=== PATIENT | male | born 1980 | race Caucasian/White ===

== ENCOUNTER 2016-08-06 18:04 | Emergency (ER) | payer OTHER ==
[2016-08-06 18:14] VITALS: BP 157/91
--- NOTE | 2016-08-06 18:21 | UC ---
Skin Complaint HPI - HPI Summary HPI Summary: The patient comes in today for: 1. Sore in the left groin: Onset: 2 days ago. Palliative/provocative: Pressure makes it worse. Rest makes it better. Quality: Sore. Region/radiation: Upper left inner thigh. Severity: 5/10 Time: Constant. Associated symptoms: Fevers: None Previous problem: No mass before. Previous treatment: He states that pinched the area 2 days ago. He states that "white stuff" came out. * - History of Current Complaint Chief Complaint: UC Time Seen by Provider: 08/06/16 18:16 Stated Complaint: INGROWN HAIR Hx Obtained From: Patient, Family/Jeeper Operator - Allergy/Home Medications Allergies/Adverse Reactions: Allergies Allergy/AdvReac Type Severity Reaction Status Date / Time No Known Allergies Allergy Verified 08/06/16 18:09 Home Medications: Home Medications Pravastatin (NF) [Pravachol (NF)] 10 mg PO 1700 08/06/16 [History Confirmed 07/22] Review of Systems Constitutional: Negative Skin: Rash Eyes: Negative ENT: Negative Respiratory: Negative Cardiovascular: Negative Gastrointestinal: Negative Genitourinary: Negative All Other Systems Reviewed And Are Negative: Yes PMH/Surg Hx/FS Hx/Imm Hx Previously Healthy: No Endocrine History Of: Reports: Dyslipidemia Denies: Diabetes, Thyroid Disease, Hyperthyroidism, Hypothyroidism Cardiovascular History Of: Denies: Cardiac Disorders, Hypertension, Pacemaker/ICD, Myocardial Infarction , Congestive Heart Failure, Atrial Fibrillation, Deep Vein Thrombosis, Bleeding Disorders Respiratory History Of: Denies: COPD, Asthma, Bronchitis, Pneumonia, Pulmonary Embolism GI/ History Of: Denies: Gastroesophageal Reflux, Ulcer, Gastrointestinal Bleed, Gall Bladder Disease, Kidney Stones, Diverticulitis, Renal Disease, Urosepsis Neurological History Of: Denies: TIA, CVA, Dementia, Seizures, Migraine Psychological History Of: Denies: Anxiety, Depression, Bipolar Disorder, Schizophrenia, Post Traumatic Stress Disorder Cancer History Of: Denies: Lung Cancer, Colorectal Cancer, Breast Cancer, Prostate Cancer, Cervical Cancer Other History Of: Negative For: HIV, Hepatitis B, Hepatitis C, Anticoagulant Therapy - Surgical History Surgical History: Yes Surgery Procedure, Year, and Place: Inguinal hernia repair; bilateral - Family History Known Family History: Negative: Cardiac Disease, Hypertension - Social History Occupation: Employed Full-time Alcohol Use: Daily Alcohol Amount: 1 beer or wine a day Substance Use Type: None Smoking Status (MU): Never Smoked Tobacco - Immunization History Most Recent Influenza Vaccination: none Most Recent Tetanus Shot: unknown Physical Exam Triage Information Reviewed: Yes Appearance: Well-Appearing, No Pain Distress, Well-Nourished Vital Signs: Initial Vital Signs Temp 97.8 F 08/06/16 18:10 Pulse 90 08/06/16 18:10 Resp 16 08/06/16 18:10 BP 157/91 08/06/16 18:10 Pulse Ox 98 08/06/16 18:10 Eyes: Positive: Conjunctiva Clear. Negative: Discharge ENT: Positive: Hearing grossly normal. Negative: Pharyngeal erythema, Nasal congestion, Nasal drainage, TM bulging, TM dull, TM red, Tonsillar swelling, Tonsillar exudate Dental: Negative: Gross Decay/Caries @ Neck: Positive: Supple, Nontender, No Lymphadenopathy. Negative: Nuchal Rigidity Respiratory: Positive: Chest non-tender, No respiratory distress, No accessory muscle use. Negative: Rhonchi, Wheezing Cardiovascular: Positive: RRR, No Murmur Abdomen Description: Positive: Nontender, No Organomegaly, Soft. Negative: Distended, Guarding Musculoskeletal: Positive: Strength Intact, ROM Intact, No Edema Neurological: Positive: Alert, Muscle Tone Normal Psychological: Positive: Normal Response To Family, Age Appropriate Behavior, Consolable Skin: Positive: Other - The patient had a mass of his upper left thigh. There was a center that had fluctuance about 1 cm in size and an oval of erythema which was about three inches arcing toward the inquinal nodes. Course/Dx - Course Course Of Treatment: The patient had less than 1 cc of 2% lidocaine with epinephrine instilled in the center of the red, fluctuant area. After anesthesia was obtained a small "X" cut was made. A small mosquito hemostat was inserted through the cut into the cavity and about 1-2 cc of bloody purulent drainage came out. A drain of about 1.5 inches was inserted into the cavity. Antibiotic ointment was applied to the surface of the cut and covered the drain outside the cavity. Telfa pad was put on the wound then a layer of gauze. Coban was used to hold the dressing in place. - Differential Diagnoses - Skin Complaint Differential Diagnoses: Abscess, Cellulitis - Diagnoses Provider Diagnoses: Abscess of the upper, inner left leg, incised and drained. Cellulitis of the same area. Discharge - Discharge Plan Condition: Stable Disposition: HOME Patient Education Materials: Cellulitis (ED), Abscess Incision and Drainage (ED ), Abscess (ED), Abscess Follow-up (ED) Referrals: Lalito Hui MD [Primary Care Provider] - 1 Week (Please see your primary care provider or us after several days to a week to see how well you are doing. If you get worse, please be seen sooner.) Additional Instructions: Please gently remove the dressing to inspect the drain and abscess site daily. Check for drainage (blood and pus) and size of redness of the area. Check for any increased tenderness of the left groin lymph nodes. Check for any drainage and tenderness. With the abscess being cut into and drained. The drainage, redness, and tenderness should be improving daily. Eventually, the drain should come out on its own. If you continue to do well with reducing redness, tenderness and drainage, you should not need to have any follow-up evaluation. If you don't continue to improve, please be seen again.
[2016-08-06] MEDS ORDERED: Lidocaine 2% W/EPI 1:100,000* 20 ML MDV ONE (18:34)
== END 2016-08-06 19:23 | disposition home or self-care (01) ==
LOC: UCEAST 18:04
DX: L02.416 Cutaneous abscess of left lower limb (principal); L03.116 Cellulitis of left lower limb
CPT/HCPCS: 10060; 87070; 87076; 87077; 87205; 87640; 87641; 99212; G0463

== ENCOUNTER 2016-08-26 13:00 | Emergency (ER) | payer OTHER ==
[2016-08-26 14:13] VITALS: BP 159/96
--- NOTE | 2016-08-26 14:33 | UC ---
Skin Complaint HPI - HPI Summary HPI Summary: follow-up abscess. He was here on Aug 06 for an abscess on left upper thigh. I&D performed with packing placed. Because it was such a small piece of packing, it was anticipated that it would fall out on its own in a day or two. However, it never fell out and has now been in place 20 days. Pt notes redness and irritation around wound with a foul smell - History of Current Complaint Chief Complaint: UCWounds Time Seen by Provider: 08/26/16 14:15 Stated Complaint: WOUND RECHECK Hx Obtained From: Patient Onset/Duration: Gradual Onset, Lasting Weeks - 2 Timing: Constant Onset Severity: Moderate Current Severity: Mild Location: Other - left upper inner thigh Character: Redness, Painful Aggravating: Touch Alleviating: Nothing Associated Signs & Symptoms: Positive: Drainage Related History: Trauma - I&D performed 06 Aug 2016 - Allergy/Home Medications Allergies/Adverse Reactions: Allergies Allergy/AdvReac Type Severity Reaction Status Date / Time No Known Allergies Allergy Verified 08/06/16 18:09 Review of Systems Constitutional: Negative Skin: Other - left upper thigh abscess Eyes: Negative ENT: Negative Respiratory: Negative Cardiovascular: Negative Gastrointestinal: Negative Genitourinary: Negative Motor: Negative Neurovascular: Negative Musculoskeletal: Negative Neurological: Negative Psychological: Negative All Other Systems Reviewed And Are Negative: Yes PMH/Surg Hx/FS Hx/Imm Hx Endocrine History Of: Reports: Dyslipidemia Denies: Diabetes, Thyroid Disease, Hyperthyroidism, Hypothyroidism Cardiovascular History Of: Denies: Cardiac Disorders, Hypertension, Pacemaker/ICD, Myocardial Infarction , Congestive Heart Failure, Atrial Fibrillation, Deep Vein Thrombosis, Bleeding Disorders Respiratory History Of: Denies: COPD, Asthma, Bronchitis, Pneumonia, Pulmonary Embolism GI/ History Of: Denies: Gastroesophageal Reflux, Ulcer, Gastrointestinal Bleed, Gall Bladder Disease, Kidney Stones, Diverticulitis, Renal Disease, Urosepsis Neurological History Of: Denies: TIA, CVA, Dementia, Seizures, Migraine Psychological History Of: Denies: Anxiety, Depression, Bipolar Disorder, Schizophrenia, Post Traumatic Stress Disorder Cancer History Of: Denies: Lung Cancer, Colorectal Cancer, Breast Cancer, Prostate Cancer, Cervical Cancer Other History Of: Negative For: HIV, Hepatitis B, Hepatitis C, Anticoagulant Therapy - Surgical History Surgical History: Yes Surgery Procedure, Year, and Place: Inguinal hernia repair; bilateral - Family History Known Family History: Negative: Cardiac Disease, Hypertension - Social History Occupation: Employed Full-time Lives: With Family Alcohol Use: Daily Alcohol Amount: 1 beer or wine a day Substance Use Type: None Smoking Status (MU): Never Smoked Tobacco - Immunization History Most Recent Influenza Vaccination: none Most Recent Tetanus Shot: unknown Physical Exam Triage Information Reviewed: Yes Appearance: Well-Appearing, No Pain Distress, Well-Nourished Vital Signs: Initial Vital Signs Temp 98.4 F 08/26/16 14:10 Pulse 72 08/26/16 14:10 Resp 18 08/26/16 14:10 BP 159/96 08/26/16 14:10 Pulse Ox 98 08/26/16 14:10 Vital Signs Reviewed: Yes Eye Exam: Normal Neck exam: Normal Respiratory Exam: Normal Cardiovascular Exam: Normal Musculoskeletal Exam: Normal Neurological Exam: Normal Psychological Exam: Normal Skin Exam: Other - left upper inner thigh with redness and a protruding wick. Removed. It is only about 1" long. Wound started oozing blood and serous fluid once packing was removed. Minimal tenderness Course/Dx - Differential Diagnoses - Skin Complaint Differential Diagnoses: Abscess, Cellulitis - Diagnoses Provider Diagnoses: resolving abscess Discharge - Discharge Plan Condition: Stable Disposition: HOME Prescriptions: Sulfamethox/Trimethoprim DS* [Bactrim DS 800/160 TAB*] 1 tab PO BID #8 tab Patient Education Materials: Abscess Follow-up (ED) Referrals: Edenilson Ennis MD [Primary Care Provider] - Additional Instructions: Clean the area once a day with soap and water. Cover it with a bandage or pad until it stops draining, which will probably happen in 2 or 3 days. Take the antibiotic just for the next 4 days. I expect that now that the packing is out of the wound it will heal rapidly.
== END 2016-08-26 14:34 | disposition home or self-care (01) ==
LOC: UCEAST 13:00
DX: L02.416 Cutaneous abscess of left lower limb (principal)
CPT/HCPCS: 99212; G0463

== ENCOUNTER 2017-02-21 07:52 | Emergency (ER) | payer OTHER ==
[2017-02-21 08:03] VITALS: BP 148/84
--- NOTE | 2017-02-21 08:22 | UC ---
Skin Complaint HPI - History of Current Complaint Chief Complaint: UCSkin Time Seen by Provider: 02/21/17 08:06 Stated Complaint: RASH Hx Obtained From: Patient - was exposed to poison brittani yesterday and today broke out in intensly itchy rash on face, arms, legs Onset/Duration: Sudden Onset - today Onset Severity: Moderate Current Severity: Moderate Location: Diffuse Character: Pruritus, Redness, Raised Aggravating: Touch Alleviating: Nothing - tried calamine Associated Signs & Symptoms: Positive: Negative Related History: Possible Reaction to: Environmental Exposure - poison brittani - Allergy/Home Medications Allergies/Adverse Reactions: Allergies Allergy/AdvReac Type Severity Reaction Status Date / Time No Known Allergies Allergy Verified 02/21/17 08:02 Review of Systems Constitutional: Negative Skin: Rash Eyes: Negative Respiratory: Negative Cardiovascular: Negative Neurological: Negative Psychological: Negative All Other Systems Reviewed And Are Negative: Yes PMH/Surg Hx/FS Hx/Imm Hx Previously Healthy: Yes Other History Of: Negative For: HIV, Hepatitis B, Hepatitis C, Anticoagulant Therapy - Surgical History Surgical History: Yes Surgery Procedure, Year, and Place: Inguinal hernia repair; bilateral - Family History Known Family History: Negative: Cardiac Disease, Hypertension - Social History Occupation: Employed Full-time Lives: With Family Alcohol Use: Daily Alcohol Amount: 1 beer or wine a day Substance Use Type: None Smoking Status (MU): Never Smoked Tobacco - Immunization History Most Recent Influenza Vaccination: none Most Recent Tetanus Shot: unknown Physical Exam Triage Information Reviewed: Yes Appearance: Well-Appearing, No Pain Distress, Well-Nourished Vital Signs: Initial Vital Signs Temp 97.6 F 02/21/17 07:59 Pulse 85 02/21/17 07:59 Resp 20 02/21/17 07:59 BP 148/84 02/21/17 07:59 Pulse Ox 100 02/21/17 07:59 Vital Signs Reviewed: Yes Eye Exam: Normal Eyes: Positive: Conjunctiva Clear. Negative: Discharge Respiratory Exam: Normal Cardiovascular Exam: Normal Neurological Exam: Normal Psychological Exam: Normal Skin: Positive: rashes - scattered linear, raised , prurutitic, erythemic lesions on UE, LE, trunk and R side face Course/Dx - Differential Diagnoses - Skin Complaint Differential Diagnoses: Contact Dermatitis, Local Allergic Reaction, Poison Brittani , Scabies - Diagnoses Provider Diagnoses: poison brittani Discharge - Discharge Plan Condition: Stable Disposition: HOME Prescriptions: Methylprednisolone [Medrol Dosepak 4 MG*] 0 mg PO .SEE ABBY INSTRUCTION #1 abby Patient Education Materials: Poison Brittani (ED) Referrals: Edenilson Ennis MD [Primary Care Provider] - 3 Days (if no improvement) Additional Instructions: make to wash the clothes and shoes that were exposed to the poison brittani use prescribed medrol dose abby (prednisone) as directed Over the counter: use Benadryl 50mg every 4-6 hours today and tomorrow apply hydrocortisone cream to itchy rash as directed
== END 2017-02-21 08:34 | disposition home or self-care (01) ==
LOC: UCEAST 07:52
DX: L23.7 Allergic contact dermatitis due to plants, except food (principal)
CPT/HCPCS: 99212; G0463

== ENCOUNTER 2017-02-26 08:40 | Emergency (ER) | payer OTHER ==
[2017-02-26 08:48] VITALS: BP 141/90
[2017-02-26] MEDS ORDERED: methylPREDNISolone 125 MG* 2 ML VIAL IM ONE (09:05)
[2017-02-26] MEDS ORDERED: methylPREDNISolone 125 MG* 2 ML VIAL ONE (09:07)
--- NOTE | 2017-02-26 15:22 | UC ---
Cuca Miles Alfonso, scribed for Anisha Shannon MD on 02/26/17 at 0857 . Skin Complaint HPI - HPI Summary HPI Summary: This patient is a 36 year old M presenting to [facility] with a chief complaint of a rash since 7 days ago. The CC is described as pruritic. The rash is at his bilateral arms, legs, and torso. Symptoms aggravated by nothing. Symptoms alleviated by Benadryl and calamine lotion. Pt was seen at [facility] on 02/21, dx poison brittani, rx'ed medrol dose pack, with his last dose this am. Patients medications reviewed this visit. Patients allergies reviewed this visit. - History of Current Complaint Chief Complaint: UCRash Time Seen by Provider: 02/26/17 08:52 Stated Complaint: RASH Hx Obtained From: Patient Onset/Duration: Sudden Onset, Lasting Weeks - 1, Still Present Timing: Constant Onset Severity: Moderate Current Severity: Moderate Location: Other - bilateral arms, legs, and torso Character: Pruritus Aggravating: Nothing Alleviating: Treatment CASH ANALYST: - Benadryl and calamine lotion Related History: Possible Reaction to: Environmental Exposure - Posion brittani. - Allergy/Home Medications Allergies/Adverse Reactions: Allergies Allergy/AdvReac Type Severity Reaction Status Date / Time No Known Allergies Allergy Verified 02/26/17 08:45 Review of Systems Constitutional: Negative Skin: Rash All Other Systems Reviewed And Are Negative: Yes PMH/Surg Hx/FS Hx/Imm Hx Other GI/ History: Inguinal hernia Other History Of: Negative For: HIV, Hepatitis B, Hepatitis C, Anticoagulant Therapy - Surgical History Surgical History: Yes Surgery Procedure, Year, and Place: Inguinal hernia repair; bilateral - Family History Known Family History: Negative: Cardiac Disease, Hypertension - Social History Alcohol Use: Daily Alcohol Amount: 1 beer or wine a day Substance Use Type: None Smoking Status (MU): Never Smoked Tobacco - Immunization History Most Recent Influenza Vaccination: none Most Recent Tetanus Shot: unknown Physical Exam Triage Information Reviewed: Yes Appearance: Well-Nourished Vital Signs: Initial Vital Signs Temp 97.6 F 02/26/17 08:45 Pulse 72 02/26/17 08:45 Resp 16 02/26/17 08:45 BP 141/90 02/26/17 08:45 Pulse Ox 100 02/26/17 08:45 Vital Signs Reviewed: Yes Eye Exam: Normal ENT Exam: Normal Neck exam: Normal Neck: Positive: No Lymphadenopathy Respiratory Exam: Normal Respiratory: Positive: Other: - no dyspnea, no tachypnea, normal respiratory rate Cardiovascular: Positive: RRR, Other: - good general skin color, good capillary refill Abdomen Description: Positive: Nontender, No Organomegaly, Soft Bowel Sounds: Positive: Present Musculoskeletal Exam: Normal Musculoskeletal: Positive: Strength Intact Neurological Exam: Normal Neurological: Positive: Other: - nonfocal, grossly intact Psychological: Positive: Age Appropriate Behavior Skin: Positive: rashes Course/Dx - Course Course Of Treatment: This patient is a 36 year old M presenting to [facility] with a chief complaint of a rash since 7 days ago. The CC is described as pruritic. The rash is at his bilateral arms, legs, and torso. Symptoms aggravated by nothing. Symptoms alleviated by Benadryl and calamine lotion. Pt was seen at [facility] on 02/21, dx poison brittani, rx'ed medrol dose pack, with his last dose this am. Patients medications reviewed this visit. Patients allergies reviewed this visit. Patient instructed to follow up with primary care provider for high blood pressure noted today at 141/90. In the [facility] course the patient was given Solu-Medrol IM 125mg. Patient will be discharged with prescription for Benadryl , Pepcid, and Prednisone taper (reviewed w pt), and follow up from PCP. The patient is agreeable with this plan. - Diagnoses Provider Diagnoses: Poison brittani / contact dermatitis. Discharge - Discharge Plan Condition: Stable Disposition: HOME Prescriptions: Diphenhydramine HCl [Benadryl Allergy 25 MG CAP] 25 mg PO Q6H PRN #20 cap PRN Reason: Itching Famotidine TAB* [Pepcid 20 MG TAB*] 20 mg PO DAILY PRN #10 tab PRN Reason: Itching predniSONE TAB* [Deltasone TAB*] 10 mg PO DAILY #20 tab Patient Education Materials: Poison Brittani (ED), Dermatitis (ED) Referrals: Edenilson Ennis MD [Primary Care Provider] - 1 Week Additional Instructions: Follow up with your primary care provider 1-2 weeks for high blood pressure noted today at 141/90. Avoid hot showers avoid astringents. Avoid direct sun exposure as much as possible. The documentation as recorded by the Cuca shannon Alfonso accurately reflects the service I personally performed and the decisions made by me, Anisha Shannon MD.
== END 2017-02-26 09:13 | disposition home or self-care (01) ==
LOC: UCEAST 08:40
DX: L23.7 Allergic contact dermatitis due to plants, except food (principal)
CPT/HCPCS: 96372; 99212; G0463; J2930

== ENCOUNTER 2018-06-01 11:32 | Emergency (ER) | payer OTHER ==
[2018-06-01 11:54] VITALS: BP 137/90
--- NOTE | 2018-06-01 12:28 | UC ---
Respiratory Complaint HPI - HPI Summary HPI Summary: Pt c/o cough, chest congestion, "burning" in chest that began 1 week ago. Pt reports he began with ST, nasal congestion and now has "gone to his chest". Pt reports HX of bronchitis. - History of Current Complaint Chief Complaint: UCRespiratory Stated Complaint: SORE THROAT CHEST CONGESTION Time Seen by Provider: 06/01/18 12:17 Hx Obtained From: Patient Onset/Duration: Gradual Onset, Lasting Days, Still Present Timing: Constant Severity Initially: Mild Severity Currently: Mild Pain Intensity: 3 Character: Cough: Productive Aggravating Factors: Deep Breaths, Recumbent Position Alleviating Factors: Nothing Associated Signs And Symptoms: Positive: URI, Nasal Congestion - Risk Factors Cardiac Risk Factors: Negative Pseudomonas Risk Factors: Negative Tuberculosis Risk Factors: Negative - Allergies/Home Medications Allergies/Adverse Reactions: Allergies Allergy/AdvReac Type Severity Reaction Status Date / Time No Known Allergies Allergy Verified 06/01/18 11:55 Home Medications: Home Medications Dextromethorphn/Acetaminoph/Cp [Vicks Nyquil Cold & Flu Liquid] 1 liq PO BEDTIME 06/01/18 [History Confirmed 06/01/18] PMH/Surg Hx/FS Hx/Imm Hx Previously Healthy: Yes Other History Of: Negative For: HIV, Hepatitis B, Hepatitis C, Anticoagulant Therapy - Surgical History Surgical History: Yes Surgery Procedure, Year, and Place: Inguinal hernia repair; bilateral - Family History Known Family History: Negative: Cardiac Disease, Hypertension - Social History Occupation: Employed Full-time Alcohol Use: Daily Alcohol Amount: 1 beer or wine a day Substance Use Type: None Smoking Status (MU): Never Smoked Tobacco Have You Smoked in the Last Year: No - Immunization History Most Recent Influenza Vaccination: none Most Recent Tetanus Shot: unknown Vaccination Up to Date: No Review of Systems All Other Systems Reviewed And Are Negative: Yes Constitutional: Positive: Chills, Fatigue Skin: Positive: Negative Eyes: Positive: Negative ENT: Positive: Sore Throat, Sinus Congestion Respiratory: Positive: Cough Cardiovascular: Positive: Negative Gastrointestinal: Positive: Negative Genitourinary: Positive: Negative Motor: Positive: Negative Neurovascular: Positive: Negative Musculoskeletal: Positive: Negative Neurological: Positive: Negative Psychological: Positive: Negative Is Patient Immunocompromised?: No Physical Exam Triage Information Reviewed: Yes Appearance: Well-Appearing Vital Signs: Initial Vital Signs Temp 97.4 F 06/01/18 11:52 Pulse 87 06/01/18 11:52 Resp 18 06/01/18 11:52 BP 137/90 06/01/18 11:52 Pulse Ox 97 06/01/18 11:52 Vital Signs Reviewed: Yes Eye Exam: Normal ENT: Positive: Nasal congestion Dental Exam: Normal Neck exam: Normal Respiratory: Positive: Normal breath sounds Cardiovascular Exam: Normal Musculoskeletal Exam: Normal Neurological Exam: Normal Psychological Exam: Normal Skin Exam: Normal UC Diagnostic Evaluation - Laboratory O2 Sat by Pulse Oximetry: 97 Respiratory Course/Dx - Differential Dx/Diagnosis Differential Diagnosis/HQI/PQRI: Bronchitis, Influenza Provider Diagnosis: Acute bronchitis Discharge - Sign-Out/Discharge Documenting (check all that apply): Patient Departure All imaging exams completed and their final reports reviewed: No Studies - Discharge Plan Condition: Stable Disposition: HOME Prescriptions: Azithromycin TAB* [Zithromax TAB (Z-ABBY) 250 mg #6 tabs] 2 tab PO .TODAY, THEN 1 DAILY #1 abby Benzonatate CAP* [Tessalon 100 MG CAP*] 100 mg PO Q8H PRN #21 cap PRN Reason: Cough predniSONE TAB* [Deltasone 20 MG TAB*] 20 mg PO DAILY #4 tab Patient Education Materials: Acute Bronchitis (ED) Referrals: Edenilson Ennis MD [Primary Care Provider] - 2 Days - Billing Disposition and Condition Condition: STABLE Disposition: Home
== END 2018-06-01 12:40 | disposition home or self-care (01) ==
LOC: UCEAST 11:32
DX: J20.9 Acute bronchitis, unspecified (principal)
CPT/HCPCS: 99212; G0463